=== PATIENT | female | born 1975 | race Caucasian/White ===

== ENCOUNTER → 2017-05-08 | Outpatient (CLI) | payer BC ==
--- NOTE | 2017-05-11 09:54 | SLEEP ---
DATE OF STUDY: 05/08/2017 REFERRING PHYSICIAN: Dr. Moore The patient is a 42-year-old who weighs 180 pounds with a BMI of 36. The patient's [place] score was 10. The patient had a diagnosis of sleep apnea, which was severe REM related, diagnosed at sleep lab in 03/2017. The patient returned to [facility] for CPAP titration. During the night study, the patient spent 410 minutes in bed and slept for 344 minutes with a sleep efficiency of 84%. Sleep latency was 36 minutes with a REM latency of 209 minutes. Overall, sleep architecture showed normal stage I sleep, slightly increased stage II sleep, increased slow wave and reduced REM sleep. The patient was started on CPAP at 5 cm water and titrated up to 7 cm water. At the final pressure, the patient slept for 287 minutes. The patient's AHI was only 1 per hour. The patient had supine as well as REM sleep. Oxygen saturation remained above 92%. EKG monitoring revealed normal sinus rhythm. No sustained arrhythmias were observed. Average heart rate was 75 beats per minute. PLMS were seen at index of 73 per hour and 15 per hour caused EEG arousals. IMPRESSION: 1. Sleep apnea diagnosed by previous sleep study. 2. 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 RECOMMENDATIONS: 1. CPAP at 7 cm water completely eliminated patient's sleep apnea and should be used on a nightly basis. 2. Follow up in 4-6 weeks to assess compliance with CPAP and to document clinical improvement. 3. Weight loss is strongly advised. 4. Avoid ASPH[employer] TI[employer] FLOOR LAYER depressants. 5. Caution regarding driving until symptoms of sleep apnea resolve with the use of CPAP. 6. PLMS should be further evaluated for any symptoms of restless legs during the day and if present, it can be treated with dopaminergic agonist agents. ONEL FARRIS MD DR: NADIRA/darling JOB#: [id number] / [id number] LANDY Jiménez MD [facility]ITALKy
== END | disposition home or self-care (01) ==
LOC: RT 18:46
PROVIDERS: ATTEND Internal Medicine Pulmonary Disease
DX: G47.33 Obstructive sleep apnea (adult) (pediatric) (principal)
CPT/HCPCS: 95811